=== PATIENT | female | born 1965 | race Caucasian/White ===

== ENCOUNTER 2016-11-22 02:28 | Emergency (ER) | payer MEDICAID, OTHER, SELFPAY ==
[~2016-11-22] VITALS: Ht 162.6 cm; Wt 90.0 kg
[2016-11-22] MEDS ORDERED: HYDROcodone/APAP 5/325 TABLET ONE (02:49)
[2016-11-22] MEDS ORDERED: HYDROcodone/APAP 5/325 TABLET PO ONE (03:00)
[2016-11-22 03:09] LABS: HEMATOCRIT 36.9 % (34.6-47.8); HEMOGLOBIN 12.4 g/dL (11.7-16.4); WHITE BLOOD COUNT 9.3 x10^3/uL (3.4-10)
[2016-11-22 03:18] LABS: BLOOD UREA NITROGEN 11 mg/dL (7-18)
[2016-11-22] MEDS ORDERED: WARF7.5T PO (03:34)
[2016-11-22] MEDS ORDERED: METO25TA35 PO (03:34)
[2016-11-22 03:57] VITALS: BP 96/54
== END 2016-11-22 04:40 | disposition home or self-care (01) ==
LOC: ED 03:24
DX: L03.116 Cellulitis of left lower limb (principal); M79.652 Pain in left thigh; J44.9 Chronic obstructive pulmonary disease, unspecified; Z86.718 Personal history of other venous thrombosis and embolism
CPT/HCPCS: 36415; 80048; 82040; 85025; 85610; 85730; 99285

== ENCOUNTER 2018-01-06 23:33 | Emergency (ER) | payer MEDICAID ==
[~2018-01-06] VITALS: Ht 160 cm; Wt 101.0 kg
[~2018-01-06 23:33] MED LIST: METO25TA35 PO; WARF7.5T PO
[2018-01-06 23:35] VITALS: BP 124/89
[2018-01-07] MEDS ORDERED: ALBUTEROL/IPRATROPIUM 2.5MG/0.5MG, 3 ML NPPB SCH
[2018-01-07] MEDS ORDERED: ALBUTEROL/IPRATROPIUM 2.5MG/0.5MG, 3 ML ONE (00:07)
[2018-01-07 00:08] LABS: BASOPHILS # (AUTO) 0.01 x10^3/uL (0-0.1); BASOPHILS % (AUTO) 0 % (0-1); EOSINOPHILS # (AUTO) 0.16 x10^3/uL (0-0.4); EOSINOPHILS % (AUTO) 2 % (1-7); LYMPHOCYTES # (AUTO) 2.04 x10^3/uL (1-3.4); LYMPHOCYTES % (AUTO) 20 % (22-44); MD NO; MEAN CORPUSCULAR HEMOGLOBIN 30.1 pg (27.0-34.8); MEAN CORPUSCULAR HGB CONC 33.3 g/dL (32.4-35.8); MEAN CORPUSCULAR VOLUME 90.4 fL (80-100); MEAN PLATELET VOLUME 8.6 fL (7.4-10.4); MONOCYTES # (AUTO) 0.69 x10^3/uL (0.2-0.8); MONOCYTES % (AUTO) 7 % (2-9); NEUTROPHILS % (AUTO) 71 % (42-75); PLATELET COUNT 217 x10^3/uL (130-400); RED CELL DISTRIBUTION WIDTH 13.5 % (9.6-15.2)
[2018-01-07 00:19] LABS: ALBUMIN 2.9 g/dL (3.4-5.0); ANION GAP 10 mmol/L (5-15); CALCIUM 8.4 mg/dL (8.5-10.1); CHLORIDE 107 mmol/L (98-107); CREATININE 0.76 mg/dL (0.55-1.02)
[2018-01-07 00:23] LABS: TROPONIN I < 0.015 ng/mL (0.000-0.045)
== END 2018-01-07 01:17 | disposition home or self-care (01) ==
LOC: ED 01-07 00:54
DX: J20.9 Acute bronchitis, unspecified (principal); J44.9 Chronic obstructive pulmonary disease, unspecified; Z86.718 Personal history of other venous thrombosis and embolism; F17.200 Nicotine dependence, unspecified, uncomplicated
CPT/HCPCS: 36415; 71045; 80048; 82040; 84484; 85025; 93005; 94640; 99284; J7512; J7620

== ENCOUNTER 2020-11-08 13:55 | Emergency (ER) | payer MEDICARE, MEDICAID ==
[~2020-11-08] VITALS: Ht 162.6 cm; Wt 109.0 kg
[2020-11-08 13:58] VITALS: BP 130/87
[2020-11-08 14:52] LABS: ALBUMIN 2.6 g/dL (3.4-5.0); ANION GAP 7 mmol/L (5-15); CALCIUM 8.2 mg/dL (8.5-10.1); CHLORIDE 108 mmol/L (98-107); CREATININE 0.64 mg/dL (0.55-1.02)
[2020-11-08 14:56] LABS: BASOPHILS % (AUTO) 1 % (0-1); EOSINOPHILS % (AUTO) 2 % (1-7); LYMPHOCYTES % (AUTO) 22 % (22-44); MEAN CORPUSCULAR HEMOGLOBIN 31.5 pg (27.0-34.8); MEAN CORPUSCULAR HGB CONC 34.5 g/dL (32.4-35.8); MEAN PLATELET VOLUME 9.2 fL (7.4-10.4); MONOCYTES % (AUTO) 12 % (2-9); NEUTROPHILS % (AUTO) 64 % (42-75); PLATELET COUNT 140 x10^3/uL (130-400); RED BLOOD COUNT 5.61 x10^6/uL (3.82-5.3); RED CELL DISTRIBUTION WIDTH 14.4 % (9.6-15.2)
--- NOTE | 2020-11-08 16:52 | NUR ---
PT CALLED FOR SECOND VS NOT IN LOBBY
--- NOTE | 2020-11-08 17:14 | NUR ---
NOT IN LOBBY WHEN CALLED BACK FOR ROOM
--- NOTE | 2020-11-08 17:30 | NUR ---
NOT IN LOBBY
--- NOTE | 2020-11-08 18:03 | NUR ---
NOT IN LOBBY
[2020-11-09] MEDS ORDERED: RIVA20TA PO (04:24)
[2020-11-12] MEDS ORDERED: PRED20TA PO (15:51)
[2020-11-12] MEDS ORDERED: ALBU18HF INH (15:51)
[2020-11-12] MEDS ORDERED: FLUT1AER INH (15:51)
[2020-11-12] MEDS ORDERED: LEVO750T6 PO (15:51)
== END 2020-11-08 19:18 | disposition left against medical advice (07) ==
LOC: ED 14:00
DX: L03.116 Cellulitis of left lower limb (principal)
CPT/HCPCS: 36415; 80048; 82040; 85025; 99283